=== PATIENT | male | born 1935 | race Caucasian/White ===

== ENCOUNTER 2021-04-15 11:26 | Inpatient (IN) | payer MEDICARE ==
[~2021-04-15] VITALS: Ht 188 cm; Wt 101.7 kg
[2021-04-15 11:38] VITALS: BP 129/87
[2021-04-15 12:27] LABS: ABSOLUTE NEUTROPHILS 4.9 thou/uL (1.4-8.2); BASOPHILS 0.9 % (0.0-2.0); EOSINOPHILS 3.9 % (0.0-3.0); HEMATOCRIT 38.4 % (42.0-52.0); HEMOGLOBIN 12.2 gm/dL (14.0-18.0); LYMPHOCYTES 18.6 % (24.0-44.0); MCH 29.5 pg (26.0-34.0); MCHC 31.9 g/dL (28.0-37.0); MCV 92.7 fL (80.0-100.0); MONOCYTES 11.4 % (1.0-8.0); PLATELET COUNT 288 thou/uL (150-400); POLYS 65.2 % (36.0-66.0); RBC 4.14 mil/uL (4.50-6.00); RDW 15.1 % (10.5-14.5); WBC 7.5 thou/uL (4.0-11.0)
[2021-04-15 12:50] LABS: CALCIUM 9.2 mg/dL (8.5-10.1); CREATININE 1.1 mg/dL (0.7-1.3); POTASSIUM 4.5 mmol/L (3.5-5.1)
[2021-04-15 13:00] LABS: ALBUMIN 2.4 g/dL (3.4-5.0); DIRECT BILIRUBIN 0.1 mg/dL (<0.1-0.2); TOTAL BILIRUBIN 0.4 mg/dL (0.2-1.0); TOTAL PROTEIN 6.4 g/dL (6.4-8.2)
--- NOTE | 2021-04-15 14:24 | NUR ---
INDUSTRIAL PHARMACIST TRIED CALLING FOR A PHYSICIAN CONSULT x3 @ 1331, 1356 AND 8882 WITH NO ANSWER EITHER TIME. ALSO LEFT A VOICEMAIL @1558.
[2021-04-16 02:27] VITALS: BP 96/69
[2021-04-16 02:29] LABS: CALCIUM 8.9 mg/dL (8.5-10.1); CREATININE 1.4 mg/dL (0.7-1.3); MAGNESIUM 1.5 mg/dL (1.8-2.4); POTASSIUM 3.7 mmol/L (3.5-5.1)
--- NOTE | 2021-04-16 08:34 | EKG ---
[address] [address] ELECTROCARDIOGRAM REPORT Name: SELIN DANGELO Room #: 170-14 ADM IN M.R.#: [id number] Admission: 04/15/21 Attend Phys: Carlton Jimenez Discharge: Date of : 37 Report #: [id number] [facility] ED Test Date: 2021-04-15 Test Time: 11:39:52 Pat Name: SELIN DANGELO Department: Room: 170 Gender: M Immigration Case Manager: FRANCISCA : 1935 Requested By: Felipe Cortés Order Number: [id number] MD: Diego Sorenson Measurements Intervals [place] Rate: 88 P: NV: QRS: 52 QRSD: 99 T: 71 QT: 362 QTc: 438 Interpretive Statements Atrial fibrillation No previous ECG available for comparison Electronically Signed On 04-16-2021 8:34:32 TRANSITION ASSISTANT by Diego Sorenson [email or web address] <ELECTRONICALLY SIGNED> By: Diego Sorenson MD, [facility] 04/16/21 0834 1139 1139 Diego Sorenson MD, FACC /EPI
[2021-04-16 18:30] VITALS: BP 105/59
[2021-04-16] MEDS ORDERED: ELIQUIS5 MG PO (18:44)
[2021-04-16] MEDS ORDERED: LIPITOR40 MG PO (18:44)
[2021-04-16] MEDS ORDERED: LOW DOSE ASPIRI81 M1 PO (18:44)
[2021-04-16] MEDS ORDERED: CALCIUM + VITA1 EACH PO (18:46)
[2021-04-16] MEDS ORDERED: IRON325 M1 PO (18:47)
[2021-04-16] MEDS ORDERED: CARVEDILOL12.5 MG PO (18:47)
[2021-04-16] MEDS ORDERED: SINGULAIR 10 MG10 MG PO (18:48)
[2021-04-16] MEDS ORDERED: FLOMAX0.4 MG PO (18:48)
[2021-04-16] MEDS ORDERED: VITAMIN B-121000 MC2 SUBLING (18:49)
[2021-04-16 19:58] VITALS: BP 108/64
--- NOTE | 2021-04-17 03:54 | NUR ---
PT IS ALERT AND ORIENTED X3 SOME FORGETFULLNESS. SON WAS AT BEDSIDE TONIGHT FOR HISTORY ON PT. LUNGS RHONCHI NOTED. AND HE BREATHES GREATER THAN 24. ABDOMEN IS ROUND BOWEL SOUNDS ACTIVE. PT HAS A ANGELES. AFIB PLAN IS FOR CARDIOVERSION TODAY. PT HAS BEEN NPO SINCE MIDNIGHHT PER ORDER. CALL LIGHT WITHIN REACH IF NEEDS ASSISTANCE
[2021-04-17 04:04] VITALS: BP 90/56
[2021-04-17 07:16] VITALS: BP 124/81
--- NOTE | 2021-04-17 09:15 | TEE ---
[facility] [place] [address] TRANSESOPHAGEAL ECHOCARDIOGRAM Name: SELIN WRIGHT Room #: 205-P ADM IN M.R.#: [id number] Admission: 04/15/21 Attend Phys: Carlton Jimenez Discharge: Date of : 37 Report #: [id number] THIS REPORT FOR: cc: MICHELLE - Chelsie family physician/PCP MICHELLE - Chelsie family physician/PCP Samir Cano MD, FACC ~ APPROVED REPORT Study performed: 04/17/2021 08:24:13 EXAM: Transesophageal Echocardiogram Patient Location: In-Patient Room #: [facility] Status: routine BSA: 2.08 HR: 118 bpm BP: 113/81 mmHg Rhythm: NSR Other Information Study Quality: Adequate Indications Atrial Fibrillation Cardioversion. Cardiomyopathy. Procedure After obtaining informed consent, patient underwent transesophageal echo in the [employer]. Type of Sedation : Conscious Sedation Sedation was administered by Jaja Zheng RN. Sedation start time: 829 Case end Time: 840 Sedation was achieved intravenously with: Versed (3.5) Fentanyl (50) Transesophageal probe was inserted and advanced into esophagus without difficulty by Samir Cano MD FACC. Echo enhancement indication: R/O Septal defect. Echo enhancement agent administered: Agitated Saline The GIOVANNI was performed without complications. Synchronized Cardioversion attempted: Successful Synchronized Cardioversion acheived with 150, 200 Joules after 2 attempt(s). Rhythm following Synchronized Cardioversion: Normal Sinus Rhythm with [facility] [place] [address] TRANSESOPHAGEAL ECHOCARDIOGRAM Name: SELIN WRIGHT Room #: 205-P ADM IN M.R.#: [id number] Admission: 04/15/21 Attend Phys: Carlton Cisse Discharge: Date of : 37 Report #: [id number] PACs Throughout the procedure, the blood pressure, pulse oximetry, cardiac rhythm, and rate were monitored. The patient tolerated the procedure without adverse effects. Recovery from conscious sedation was uneventful and vital signs were stable. Left Ventricle Left ventricle is mildly dilated. There is global hypokinesis of the left ventricle. There is normal left ventricular wall thickness. Left ventricular systolic function is severely decreased. LVEF is 20-25%. Right Ventricle Right ventricle is at the upper limits of normal. Right ventricle is hypokinetic. Atria Biatratrial enlargement. No shunting noted with bubble study. No thrombus is visualized in the left atrium or appendage. Aortic Valve Aortic valve is trileaflet; mildly sclerotic. Trace aortic regurgitation. There is no aortic valvular stenosis. Mitral Valve The mitral valve is normal in structure. Mild mitral regurgitation. Tricuspid Valve The tricuspid valve is normal in structure. Great Vessels The aortic root is normal in size. Pericardium There is no pericardial effusion. <Conclusion> Indication; atrial fibrillation and cardiomyopathy ejection fraction 20% consent was obtained Timeout performed After appropriate sedation esophageal probe was advanced without difficulty Left atrial appendage; no obvious mass or clot detected [facility] [address] [place] [address] TRANSESOPHAGEAL ECHOCARDIOGRAM Name: SELIN WRIGHT Room #: 205-P ADM IN M.R.#: [id number] Admission: 04/15/21 Attend Phys: Carlton Cisse Discharge: Date of : 37 Report #: [id number] Moderate biatrial enlargement Left ventricle mildly dilated with normal wall thickness, global hypokinesis EF20% Right ventricle upper limits of normal with moderate hypokinesis Normal aortic valve structure and function Mild mitral valve insufficiency No tricuspid valve insufficiency No pericardial effusion Minimal calcification throughout the aorta No evidence of ASD/VSD by color flow/bubble study Patient cardioverted to sinus rhythm with frequent PACs after 150-200 J/biphasic mode Patient tolerated procedure well Twelve-lead ECG pending <ELECTRONICALLY SIGNED> By: Samir Cano MD, FACC 04/17/21914 4 4 Samir Cano MD, FACC /INF
[2021-04-17 11:14] VITALS: BP 126/71; BP 97/60
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
[2021-04-17 15:21] VITALS: BP 115/66
--- NOTE | 2021-04-17 16:50 | NUR ---
PATIENT IS A CANDIDATE FOR ACUTE REHAB STAY. CRANE HOIST OR LIFT OPERATOR SPOKE WITH SON AND INFORMATION SHARED REGARDING ACUTE REHAB BENEFITS VS SKILLED. PATIENT'S INSURANCE CALLED. PATIENT HAS A HMO FOR [facility] ONLY AND ANY FACILITY IN THIS AREA WOULD NEED LEVEL ONE REVIEW FOR AUTHORIZATION. MEDICAL REVIEW DEPARTMENT PHONE NUMBER IS . BLUE CROSS CLOSED OVER WEEKEND. WILL ATTEMPT AUTHORIZATION ON TUESDAY PER PATIENT'S SON'S REQUEST.
[2021-04-17 19:34] VITALS: BP 99/57
--- NOTE | 2021-04-18 03:57 | NUR ---
PT IS ALERT AND ORIETNED X3 FORGETFULL AT TIMES. PT UNDERWENT A CARDIOVERSION RHTHYM FLUCTUATES SINUS IRREGULAR TO AFIB. SNACK GIVEN BEFORE BEDTIME. LUNGS ARE CLEAR TO DIMINISHED. ON 2 LITERS NASAL CANULA. SLEEPING DURING THE NIGHT. ABDOMEN IS ROUND BOWEL SOUNDS ACTIVE X4. CALL LIGHT WITHIN REACH IF NEEDS ASSSISTANCE PER NURSING. DENIES ANY PAIN.
[2021-04-18 05:17] VITALS: BP 142/88
[2021-04-18 07:42] VITALS: BP 119/40
[2021-04-18 11:12] VITALS: BP 96/59
--- NOTE | 2021-04-18 11:51 | EKG ---
[place] [address] [facility] [place] [address] ELECTROCARDIOGRAM REPORT Name: SELIN WRIGHT Room #: 205-P ADM IN M.R.#: [id number] Admission: 04/15/21 Attend Phys: Carlton Jimenez Discharge: Date of : 37 Report #: [id number] [facility] Test Date: 2021-04-17 Test Time: 09:27:34 Pat Name: SELIN WRIGHT Department: Room: 205 P Gender: M Ski Lift Attendant: MARSHALL : 1935 Requested By: Samir Cano Order Number: [id number] MD: Diego Sorenson Measurements Intervals [place] Rate: 86 P: -55 VT: 118 QRS: 37 QRSD: 94 T: 69 QT: 379 QTc: 454 Interpretive Statements Sinus or ectopic atrial rhythm Frequent supraventricular complexes Early R wave progression Compared to ECG 04/15/2021 11:39:52 Atrial fibrillation no longer present Electronically Signed On 04-18-2021 11:51:09 KNOT TYING OPERATOR by Diego Sorenson [email or web address] <ELECTRONICALLY SIGNED> By: Diego Sorenson MD, [facility] 04/18/21 1151 6 6 Diego Sorenson MD, FAC /EPI
--- NOTE | 2021-04-18 12:09 | EKG ---
[place] [address] [facility] [place] [address] ELECTROCARDIOGRAM REPORT Name: SELIN WRIGHT Room #: 205-P ADM IN M.R.#: [id number] Admission: 04/15/21 Attend Phys: Carlton Jimenez Discharge: Date of : 37 Report #: [id number] [facility] Test Date: 2021-04-18 Test Time: 08:13:10 Pat Name: SELIN WRIGHT Department: Room: 205 P Gender: M Digital Project Manager: SG : 1935 Requested By: Mikki Coles Order Number: [id number] MD: Diego Sorenson Measurements Intervals [place] Rate: 92 P: [place]: QRS: 37 QRSD: 101 T: 64 QT: 373 QTc: 462 Interpretive Statements Sinus rhythm with frequent atrial premature complexes Minimal nonspecific ST segment abnormality Compared to ECG 04/17/2021 09:27:34 No significant change was found Electronically Signed On 04-18-2021 12:08:44 J2EE ARCHITECT by Diego Sorenson [email or web address] <ELECTRONICALLY SIGNED> By: Diego Sorenson MD, [facility] 04/18/21 1208 2 Diego Sorenson MD, FACC /EPI
[2021-04-18 15:15] VITALS: BP 111/80
[2021-04-18 19:32] VITALS: BP 114/75
[2021-04-19 03:18] LABS: CALCIUM 8.5 mg/dL (8.5-10.1); CREATININE 1.4 mg/dL (0.7-1.3); POTASSIUM 4.4 mmol/L (3.5-5.1)
--- NOTE | 2021-04-19 04:00 | NUR ---
PT IS ALERT AND ORIENTED WITH SOME SLIGHT FORGETFULNESS. MATCH-E-BE-NASH-SHE-WISH BAND.MANTAINED ON /NC SATTING WELL ABOVE 94%.PT REQUIRES SBA TO THE BSC-HE HAD A BM.DENIES ANY CHEST PAIN.CALLS WITH NEEDS.
[2021-04-19 04:40] VITALS: BP 148/106
[2021-04-19 04:56] VITALS: BP 148/95
[2021-04-19 07:49] VITALS: BP 143/82
--- NOTE | 2021-04-19 10:27 | EKG ---
[facility] [address] [place] [address] ELECTROCARDIOGRAM REPORT Name: SELIN WRIGHT Room #: 205-P ADM IN M.R.#: [id number] Admission: 04/15/21 Attend Phys: Carlton Jimenez Discharge: Date of : 37 Report #: [id number] [facility] Test Date: 2021-04-19 Test Time: 07:23:36 Pat Name: SELIN WRIGHT Department: Room: 205 P Gender: M Production Maintenance Technician: EDWIN : 1935 Requested By: Diego Sorenson Order Number: [id number] MD: Diego Sorenson Measurements Intervals [place] Rate: 80 P: -35 MO: 132 QRS: 34 QRSD: 102 T: 64 QT: 408 QTc: 471 Interpretive Statements Sinus rhythm Multiple premature complexes, vent & supraven Compared to ECG 04/18/2021 08:13:10 Premature ventricular complexes are now present Electronically Signed On 04-19-2021 10:27:08 APPLICATION SUPPORT DEVELOPER by Diego Sorenson [email or web address] <ELECTRONICALLY SIGNED> By: Diego Sorenson MD, [facility] 04/19/21 1027 0723 2 Diego Sorenson MD, FACC /EPI
[2021-04-19 11:31] VITALS: BP 103/58
[2021-04-19 15:12] VITALS: BP 98/63
--- NOTE | 2021-04-19 18:17 | NUR ---
PT ASSESSED AT START OF SHIFT. VERY FORGETFUL BUT AWARE OF SITUATION. NO C/O PAIN. RT DC'D O2 THIS AM SATTING ABOVE 94% ON RA. EATING AND DRINKING WELL. GOOD URINE OUTPUT THROUGH CONDOM CATH. UP TO THE CHAIR W/ MIN ASSIST. PT DID HAVE SOME RESTLESSNESS AROUND DINNER TIME AND GOT BETTER AFTER GETTING OUT OF BED TO THE CHAIR. SON STATES PT DRINKS 2 COCKTAILS IN THE EVENING. VERY HARD OF HEARING AND DOES BETTER W/ HEARING AIDS IN.
[2021-04-19 20:13] VITALS: BP 115/59
[2021-04-20 04:22] VITALS: BP 134/88
--- NOTE | 2021-04-20 04:23 | NUR ---
UPON SHIFT REPORT, PT NOTABLY HARD OF HEARING, DENIES PAIN, REPORTS SOB WHILE ON ROOM AIR, PT GRUNTING IN BETWEEN RESPIRATIONS, O2 APPLIED, PT REPORTING RELIEF AT 2.5L, GRUNTING NOTED WITH EXERTION, PT ASSISTED TO BATHROOM WITH X1 ASSIST, GAIT STEADY, CONDOM CATHETER IN PLACE WITH LIGHT YELLOW URINE NOTED. UPON SHIFT ASSESSMENT, PT AOX4, ANSWERING ORIENTATION PROMPTS APPROPRIATELY, OTHERWISE INTERMITTENTLY FORGETFUL. PT DENIES PAIN. PT HAS PRN PO APAP Q4HR AVAILABLE. PT REPORTS SOB WITH EXERTION, REMAINS ON 2.5L WITHOUT DESATURATION. PT TOLERATING PO INTAKE OF FLUIDS AND HEART HEALTHY DIET WITHOUT ISSUE. PT WITHOUT NAUSEA OR EMESIS. PT INCONTINENT OF URINE, CONDOM CATHETER REMOVED PER PT. PT RESTING IN BED THROUGHOUT SHIFT, FREQUENT REPOSITIONING ENCOURAGED, PT NOTED TO SHIFY INDEPENDENTLY. SENSATION INTACT, CAPILLARY REFILL LESS THAN 3SEC, RADIAL PULSES PALPABLE, PEDAL PULSES FAINT TO PALPATION. NONPITTING EDEMA NOTED TO BLE. IV TO RIGHT WRIST RED, TENDER WITH EDEMA, DISCONTINUATION OF IV SITE ANTICIPATED, NEW IV SITE TO BE OBTAINED IF POSSIBLE. PT ENCOURAGED TO NOTIFY STAFF FOR ALL NEEDS, CALL LIGHT WITHIN REACH, BED ALARM ON, BED LOCKED IN LOWEST POSITION, ROOM REMAINS NEAR NURSES STATION. FREQUENT MONITORING WILL CONTINUE.
[2021-04-20 07:30] VITALS: BP 147/101; BP 155/104
--- NOTE | 2021-04-20 11:26 | NUR ---
Son wantedd to sp with casemgt. Patients insurance only has [place] in network facilities. Son reports he wants his father to continue with plan for [facility] here in hospital. Liason working on auth with out of network insurance.
[2021-04-20 11:35] VITALS: BP 101/65
--- NOTE | 2021-04-20 13:11 | NUR ---
PATIENT HAS BEEN ACCEPTED TO [facility] PENDING AUTHORIZATION AND PATIENT'S SON IS WANTING PATIENT TO ADMIT TO 5[facility]. PATIENT HAS OUT OF STATE HMO WITH NO IN NETWORK PROVIDERS IN AREA. LEVEL ONE REVIEW FOR AUTHORIZATION REQUESTED THIS DATE FROM [employer] AND INFORMATION FAXED. WILL AWAIT INSURANCE RESPONSE.
--- NOTE | 2021-04-20 14:11 | EKG ---
[facility] [address] [place] [address] ELECTROCARDIOGRAM REPORT Name: SELIN WRIGHT Room #: 205-P ADM IN M.R.#: [id number] Admission: 04/15/21 Attend Phys: Carlton Jimenez Discharge: Date of : 37 Report #: [id number] [facility] Test Date: 2021-04-20 Test Time: 10:00:59 Pat Name: SELIN WRIGHT Department: Room: 205 P Gender: M Sales Representative Adding Machines: MARSHALL : 1935 Requested By: Samir Cano Order Number: [id number] MD: Samri Cano Measurements Intervals [place] Rate: 88 P: -62 NC: 126 QRS: 37 QRSD: 102 T: 61 QT: 361 QTc: 437 Interpretive Statements Normal Sinus Rhythm with PAC's 1 avb Compared to ECG 04/19/2021 07:23:36 Atrial premature complex(es) now present Electronically Signed On 04-20-2021 14:11:32 VISUAL BASIC PROGRAMMER by Samir Cano [email or web address] <ELECTRONICALLY SIGNED> By: Samir Cano MD, [facility] 04/20/21 1411 1000 Carlito Cano MD, FACC /EPI
[2021-04-20 15:37] VITALS: BP 102/51
--- NOTE | 2021-04-20 18:34 | NUR ---
Assumed care of pt this AM. Pt is A&O x4, slightly forgetful & impulsive. Pt had bought of confusion this afternoon but easily reoriented. SR w/ PACs on the monitor. Received pt on 2L NC, now on RA. Pt denies any pain. Pt son wanting to know about podiatry consult. Pt son updated on plan of care.
[2021-04-20 20:07] VITALS: BP 94/48
[2021-04-21 03:40] VITALS: BP 149/93
--- NOTE | 2021-04-21 04:58 | NUR ---
PT RESTING IN NO ACUTE DISTRESS.A/OX4 WITH INTERMITTENT CONFUSION AND DISORIENTATION,EASILY REDIRECTED.STAFF ASSIST WITH ADLS.VSS.SA ON THE MONITOR.NO SIGNIFICANT CHANGES OVERNIGHT.
--- NOTE | 2021-04-21 09:19 | NUR ---
5[facility] has submitted for auth. Son called insurance and reports he told him patient moved here and he says they plan to discontinue coverage. Son upset felt he was told to call insurance to alert he is living here. He reports by telling insurance he was living here they plan to not cover patient. As of May 09 patient to have new health insurance. Sp with son in am he is interested in to know diego if approved for acute rehab. If not he wants to determine if patient safe for home with private duty. casemgt following
[2021-04-21 12:00] VITALS: BP 100/59
--- NOTE | 2021-04-21 12:17 | NUR ---
Assumed care of pt this AM. Pt is oriented x3, on 1L NC, SR w/ PACs on the monitor. Pt denies chest pain. Pt son states that pt is "doing really bad" after pt was unable to answer son's physics questions. Pt son request podiatry consult for toe nail cutting. Pt remains impulsive & doesn't call appropriately. Incontinent. Frequent rounding & high fall precautions in place.
[2021-04-21 16:00] VITALS: BP 99/54
[2021-04-21 19:53] VITALS: BP 99/64
--- NOTE | 2021-04-22 03:25 | NUR ---
Assumed pt care at 1900. Pt is sleeping upon arriving to the room. Son at bedside. Pt awakens, pt is alert and confused. No sign of distress noted. Assessment completed and documented. Scheduled meds administered to pt. Pt is stable through the night. No acute events through the night. Continue to monitor. No further needs at this time.
[2021-04-22 03:55] VITALS: BP 115/70
[2021-04-22 08:09] VITALS: BP 110/72
[2021-04-22] MEDS ORDERED: PACERONE 200 M200 M1 PO (10:50)
[2021-04-22] MEDS ORDERED: CARVEDILOL12.5 MG PO (10:50)
[2021-04-22] MEDS ORDERED: MAGNESIUM400 MG PO (10:51)
[2021-04-22] MEDS ORDERED: LASIX 40 MG TAB40 M1 PO (10:51)
[2021-04-22] MEDS ORDERED: PROTONIX 20 MG20 M1 PO (10:51)
[2021-04-22 11:20] VITALS: BP 76/43
--- NOTE | 2021-04-22 14:21 | NUR ---
LOADER OPERATOR NOTIFIED THIS NURSE OF PATIENT BP BEING 76/43. THIS NURSE ASSESSED PATIENT WHO STATED FEELING "BLAH,WEAK AND DIZZY" THIS NURSE RECHECKED BP 85/50. THIS NURSE NOTIFIED CARDIOLOGY ABOUT LOW BP. NEW ORDER FOR NS 250 X1 NOW RAN OVER AN HOUR TIME. THIS NURSE AND RN KRISTINE LAID PATIENT IN BED AND RN PLACED IV IN RIGHT UPPER ARM WITH OUT DIFFICULTY. FLUIDS RAN OVER ONE HOUR. BP WENT UP DURING FLUID INFUSION. 1347 BP 100/59 AND PATIENT STATES FEELING MUCH BETTER. DOCTOR NOTIFIED OF BP INPROVEMENT. REPORT GIVEN TO ONCOMING RN.
[2021-04-22 15:09] VITALS: BP 96/54
[2021-04-22 15:11] VITALS: BP 76/43
--- NOTE | 2021-04-22 15:19 | NUR ---
SPOKE WITH SON THIS AM AND REVIEWED PROCESS OF WAITING FOR AUTH FOR ACUTE REHAB. DR BISHOP ENTERED ROOM DURING DISCUSSION. SON MENTIONED IF DO NOT RECIEVE AUTH BY 1600 TODAY HE PLANS OF TAKING PT HOME. RECIEVED NOTIFICATION FROM VIDHYA FROM [facility] THAT AUTH COULD TAKE UP TO 14 DAYS. PTS SON NOT AGREEABLE TO CONTINUE TO WAIT. HE LEFT FOR WORK HOWEVER KAYLEN WITH [facility] IS ARRANGING HOME CARE FOR PT AND INVOLVED IN CM FOR PT. SHE IS HERE TO VISIT AND AWARE OF THE SITUATION. DISCUSSED PLAN FOR HOME FOR PT TODAY DUE TO NOT WANTING TO WAIT 2 WEEKS FOR AUTH. SHE INFORMED CM PT HAS WALKER AT HOME. NO PREFERENCE FOR HH AGENCY. DEFERRED TO HOSPITAL TO ARRANGE HH. HH CARE ARRANGED THROUGH [facility]. SHE WILL SON FOR TRANSPORT HOME. NO FUTHER NEEDS.
--- NOTE | 2021-04-22 15:31 | NUR ---
TOOK OVER CARE OF THIS PATIENT AT 1300. PT RESTING IN BED COMFORTABLY. PT DENIES ANY NEEDS AT THIS TIME; DENIES SHORTNESS OF BREATH, DIZZINESS, HEADACHE, OR CHEST PAIN. WILL CONTINUE TO MONITOR PATIENTS BLOOD PRESSURE IT HAS BEEN LOW RECENTLY. CALLED CARDIOLOGY REGARDING PATIENTS MOST RECENT BLOOD PRESSURES; THEY ARE OKAY WITH DISCHARGE AND TO FOLLOW UP WITH PATIENT IN A FEW DAYS.
[2021-04-22 16:00] VITALS: BP 76/43
--- NOTE | 2021-04-22 16:45 | NUR ---
SPOKE TO KAYLEN AT BEDSIDE. ALTHOUGH PT IS MEDICALLY STABLE TO DC HOME CM OFFERED SKILLED SERVICES AGAIN. [facility] PT DID NOT WANT SKILLED SERVICES BUT CONTINUE WITH TAKING HIM HOME WITH HH. SON AWARE AND WILL TRANSPORT PT HOME.
== END 2021-04-22 19:00 | disposition home health service (06) | DRG 291 ==
LOC: ER 11:26 → EROBS 13:02 → 2N 13:02 → ER 04-16 04:54 → EROBS 04-16 04:54 → 2N 04-16 18:37
PROVIDERS: Internal Medicine; Nurse Practitioner; Student in an Organized Health Care Education/Training Program; ADMIT Hospitalist; ATTEND Hospitalist
PROC: 5A2204Z Restoration of Cardiac Rhythm, Single (ICD-10-PCS; principal; 2021-04-17)
PROC: B24BZZ4 Ultrasonography of Heart with Aorta, Transesophageal (ICD-10-PCS; principal; 2021-04-17)
DX: I50.31 Acute diastolic (congestive) heart failure (principal); E43 Unspecified severe protein-calorie malnutrition; I42.9 Cardiomyopathy, unspecified; I48.91 Unspecified atrial fibrillation; Z20.822 Contact with and (suspected) exposure to COVID-19; E78.5 Hyperlipidemia, unspecified; N40.0 Benign prostatic hyperplasia without lower urinary tract symptoms; H53.9 Unspecified visual disturbance; I49.1 Atrial premature depolarization; Z79.899 Other long term (current) drug therapy; I69.398 Other sequelae of cerebral infarction; Z68.28 Body mass index [BMI] 28.0-28.9, adult
CPT/HCPCS: 10081; 59018

== ENCOUNTER → 2021-04-15 | Outpatient (CLI) | payer MEDICARE ==
[~2021-04-15] MED LIST: CALCIUM + VITA1 EACH PO; CARVEDILOL12.5 MG PO; ELIQUIS5 MG PO; FLOMAX0.4 MG PO; IRON325 M1 PO; LIPITOR40 MG PO; LOW DOSE ASPIRI81 M1 PO; SINGULAIR 10 MG10 MG PO; VITAMIN B-121000 MC2 SUBLING
== END ==
LOC: SJCVCIMAG 09:04
PROVIDERS: ATTEND Internal Medicine
DX: R94.31 Abnormal electrocardiogram [ECG] [EKG] (principal); I35.8 Other nonrheumatic aortic valve disorders; R00.0 Tachycardia, unspecified; I48.91 Unspecified atrial fibrillation; I50.9 Heart failure, unspecified; R06.00 Dyspnea, unspecified; I42.9 Cardiomyopathy, unspecified; E78.00 Pure hypercholesterolemia, unspecified; Z13.220 Encounter for screening for lipoid disorders; Z86.73 Personal history of transient ischemic attack (TIA), and cerebral infarction without residual deficits; Z72.89 Other problems related to lifestyle; Z79.82 Long term (current) use of aspirin; Z79.899 Other long term (current) drug therapy

== ENCOUNTER → 2021-04-29 | Outpatient (CLI) | payer MEDICARE ==
[~2021-04-29] MED LIST changes: +LASIX 40 MG TAB40 M1 PO; +MAGNESIUM400 MG PO; +PACERONE 200 M200 M1 PO; +PROTONIX 20 MG20 M1 PO
== END ==
LOC: SJCVC 14:48
PROVIDERS: ATTEND Internal Medicine
DX: R94.31 Abnormal electrocardiogram [ECG] [EKG] (principal); I48.0 Paroxysmal atrial fibrillation; I42.0 Dilated cardiomyopathy; I34.0 Nonrheumatic mitral (valve) insufficiency; Z72.89 Other problems related to lifestyle; E78.00 Pure hypercholesterolemia, unspecified; Z79.899 Other long term (current) drug therapy; Z79.82 Long term (current) use of aspirin

== ENCOUNTER → 2021-06-24 | Outpatient (CLI) | payer OTHER, MEDICARE | LOC: SJCVC 15:17 | PROVIDERS: ATTEND Internal Medicine | DX: R94.31 Abnormal electrocardiogram [ECG] [EKG] (principal); I48.0 Paroxysmal atrial fibrillation; I42.0 Dilated cardiomyopathy; I34.0 Nonrheumatic mitral (valve) insufficiency; E78.00 Pure hypercholesterolemia, unspecified; I25.5 Ischemic cardiomyopathy; Z72.89 Other problems related to lifestyle; Z79.899 Other long term (current) drug therapy ==